=== PATIENT | male | born 1965 | race Caucasian/White ===

== ENCOUNTER → 2021-12-30 | Day surgery (SDC) | payer OTHER ==
[2021-12-29 09:24] VITALS: BMI 30.5
[~2021-12-30] MED LIST: LACTATED RINGERS 1,000 ML IV SCH; PROPOFOL 10 MG/ML 20 ML VIAL IV ONE
[2021-12-30 09:29] VITALS: TEMP 97.2
--- NOTE | 2021-12-30 10:19 | P.PCN ---
Date of Procedure: 12/30/21 Procedure(s) Performed: BRIEF HISTORY: Patient is a 56-year-old pleasant white male scheduled for an elective colonoscopy as a part of evaluation of prior history of colon polyps. His last colonoscopy was done at [facility] and was noted to have 4 polyps. PROCEDURE PERFORMED: Colonoscop with snare polyp y. PREOPERATIVE DIAGNOSIS: History of colon polyps. IV sedation per Anesthesia. PROCEDURE: After informed consent was obtained, the patient, was brought into the endoscopy unit. IV sedation was administered by Anesthesia under continuous monitoring. Digital rectal examination was normal. Initially the Olympus CF-160 flexible video colonoscope was then inserted in the rectum, gradually advanced into the cecum without any difficulty. Careful examination was performed as the scope was gradually being withdrawn. Ileocecal valve and the appendiceal orifice were visualized and appeared normal. Prep was excellent. Mucosa of the cecum, ascending colon, appeared normal. In the transverse colon there was a 5 mm sessile polyp removed by snare polypectomy. Rest of the transverse colon, desc ending colon, sigmoid colon, and rectum appeared normal. In the Sigmoid colon there was a 4 mm sessile polyp removed by snare polypectomy. Scattered left- sided diverticulosis seen. Retroflexion was performed in the rectum and no lesions were seen. The patient tolerated the procedure well. IMPRESSION: 5 mm transverse colon polyp status post polypectomy 4 mm sigmoid polyp status post polypectomy Scattered sigmoid diverticulosis RECOMMENDATIONS: Findings of this examination were discussed with the patient well as his family.. He was advised to follow with the biopsy results. If the biopsy reveals adenoma he can have a repeat colonoscopy in 5 years
[2021-12-30 10:27] VITALS: BP 113/79; RESP 16
[2021-12-30 10:35] VITALS: PULSE 89
== END | disposition home or self-care (01) ==
LOC: ORWHC2ENDO 08:58
PROVIDERS: ATTEND Internal Medicine Gastroenterology
DX: Z12.11 Encounter for screening for malignant neoplasm of colon (principal); D12.3 Benign neoplasm of transverse colon; K63.5 Polyp of colon; K57.30 Diverticulosis of large intestine without perforation or abscess without bleeding; Z86.010 Personal history of colon polyps; Z79.890 Hormone replacement therapy; Z79.899 Other long term (current) drug therapy
CPT/HCPCS: 88305; 45385; J2704